=== PATIENT | male | born 1965 | race Caucasian/White ===

== ENCOUNTER 2024-03-21 23:43 | Emergency (ER) | payer OTHER, SELFPAY ==
[2024-03-21 23:49] VITALS: BP 140/100
[2024-03-21 23:52] VITALS: BP 141/100
[2024-03-22] VITALS: BP 123/90
[2024-03-22 00:02] LABS: % Basophils 0.6 % (0-2); % Eosinophils 6.7 % (0-6); % Immature Granulocytes 0.2 % (0-0.5); % Lymphocytes 40.3 % (20.5-51.1); % Monocytes 8.6 % (1.7-9.3); % Neutrophils 43.6 % (42.2-75.2); Absolute Eosinophils 0.4 10^3/uL (0-0.7); Absolute Lymphocytes 2.2 10^3/uL (1.2-3.4); Absolute Monocytes 0.5 10^3/uL (0.1-0.6); Absolute Neutrophils 2.4 10^3/uL (1.4-6.5); Hematocrit 39.5 % (39.0-52.0); Hemoglobin 13.8 g/dL (13.0-18.0); Mean Corp Hgb Conc. 34.9 g/dL (33.0-37.0); Mean Corpuscular Hgb 31.9 pg (27.0-31.0); Mean Corpuscular Volume 91.2 fL (80.0-94.0); Mean Platelet Volume 10.3 fL (7.4-10.4); Nucleated Red Blood Cells % 0 % (-); Platelet Count 156 10^3/uL (130-400); Red Blood Cell Count 4.33 10^6/uL (4.70-6.10); Red Cell Dist. Width 12.5 % (11.5-14.5); White Blood Cell Count 5.4 10^3/uL (4.8-10.8)
[2024-03-22 00:03] VITALS: BMI 28.5
[2024-03-22 00:20] LABS: ALT (SGPT) 13 U/L (0-50); AST (SGOT) 34 U/L (17-59); Albumin 4.3 g/dl (3.5-5.0); Alkaline Phosphatase 43 U/L (38-126); Blood Urea Nitrogen 26 mg/dl (9-20); Calcium 9.6 mg/dl (8.4-10.2); Carbon Dioxide 27 mmol/L (22-30); Chloride 103 mmol/L (98-107); Estimated Creatinine Clearance 93 ml/min; Glucose 83 mg/dl (70-99); Potassium 4.6 mmol/L (3.5-5.1); Sodium 138 mmol/L (135-145); Total Bilirubin 0.9 mg/dl (0.2-1.3); Total Protein 6.9 g/dl (6.3-8.2); eGFR > 60.00
[2024-03-22 00:30] LABS: Troponin I < 0.012 ng/ml
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
[2024-03-22 01:00] VITALS: BP 123/92
[2024-03-22 02:00] VITALS: BP 119/80
[2024-03-22 03:00] VITALS: BP 141/98
--- NOTE | 2024-03-22 03:06 | DOWNTIME ---
There was a [employer] Client [employer] Downtime on 03/21/2024 from 0100 to 03/22/2024 at 0300. Downtime documentation of patient's care, including medication administrations, has been reconciled in the electronic record per guidelines. Refer to the
patient's paper chart under the miscellaneous tab to see printed paper medication records and downtime forms.
[2024-03-22 04:21] VITALS: BP 125/88
[2024-03-22 04:35] LABS: Troponin I < 0.012 ng/ml
[2024-03-22 05:00] VITALS: BP 122/87
== END 2024-03-22 05:07 | disposition home or self-care (01) ==
LOC: EMR 23:43
PROVIDERS: EMERGENCY PHYSICIAN Student in an Organized Health Care Education/Training Program
DX: R07.89 Other chest pain (principal); I10 Essential (primary) hypertension; K21.9 Gastro-esophageal reflux disease without esophagitis; F17.200 Nicotine dependence, unspecified, uncomplicated
CPT/HCPCS: 99283; 80053; 84484; 85025; 93005

== ENCOUNTER → 2025-08-20 13:04 | Outpatient (REF) | payer OTHER, SELFPAY | LOC: RAD 13:04 | PROVIDERS: ATTENDING PHYSICIAN Nurse Practitioner Acute Care; FAMILY PHYSICIAN Internal Medicine | DX: R63.4 Abnormal weight loss (principal); F17.200 Nicotine dependence, unspecified, uncomplicated | CPT/HCPCS: 71275; Q9967 ==

== ENCOUNTER → 2025-08-23 11:20 | Outpatient (REF) | payer OTHER, SELFPAY | LOC: RAD 11:20 | PROVIDERS: ATTENDING PHYSICIAN Nurse Practitioner Acute Care | DX: R63.4 Abnormal weight loss (principal); F17.200 Nicotine dependence, unspecified, uncomplicated | CPT/HCPCS: 74178; Q9967 ==